=== PATIENT | male | born 1965 | race Caucasian/White ===

== ENCOUNTER 2017-07-04 02:26 | Inpatient (IN) | payer BC ==
[~2017-07-04] VITALS: Ht 193 cm; Wt 115.2 kg
[~2017-07-04 02:26] MED LIST: CEFTIN500 MG PO; HYDROCODON-ACE1 EAC7 PO; HYDROCODONE-AP1 EAC6 PO; KEFLEX500 MG PO; LOPRESSOR50 PO; NORCO 5-325 TA1 EACH PO; PEPCID40 MG PO; SENOKOT-S1 TA1 PO; ZOFRAN ODT4 MG PO
[2017-07-04 02:27] VITALS: BP 189/102
[2017-07-04 02:36] LABS: URINE BILIRUBIN NEGATIVE (Negative); URINE BLOOD 3+ (Negative); URINE CLARITY CLEAR; URINE COLOR YELLOW; URINE GLUCOSE-RANDOM* NEGATIVE (Negative); URINE KETONES TRACE (Negative); URINE LEUKOCYTES-REFLEX NEGATIVE (Negative); URINE NITRITE-REFLEX NEGATIVE (Negative); URINE PROTEIN (DIPSTICK) NEGATIVE (Negative); URINE SPECIFIC GRAVITY >= 1.030 (1.005-1.035); URINE UROBILINOGEN 0.2 E.U./dl (0.2-1.0)
[2017-07-04] MEDS ORDERED: ADDERALL 10 MG10 MG PO (02:38)
[2017-07-04 02:44] LABS: SQUAMOUS None Seen /LPF (0-3)
[2017-07-04 02:45] LABS: AMORPHOUS URATES Moderate /LPF (None Seen); BACTERIA-REFLEX 1-9 Few /HPF (None Seen); CRYSTALS None Seen /LPF (None Seen); FINE GRANULAR CASTS 0-3 Few /LPF (None Seen); HYALINE CASTS 0-3 Few /LPF (None Seen); MUCUS 0-3 Light strn/LPF (None Seen); URINE RBC 3-10 Few /HPF (0-2); URINE WBC-REFLEX None Seen /HPF (0-5)
[2017-07-04 03:26] LABS: ABSOLUTE NEUTROPHILS 4.4 thou/uL (1.4-8.2); BASOPHILS 0.5 % (0.0-2.0); HEMOGLOBIN 17.6 gm/dL (14.0-18.0); LYMPHOCYTES 23.7 % (24.0-44.0); MCH 31.3 pg (26.0-34.0); MCHC 35.2 g/dL (28.0-37.0); MCV 88.7 fL (80.0-100.0); MONOCYTES 10.7 % (1.0-8.0); PLATELET COUNT 127 thou/uL (150-400); POLYS 63.1 % (36.0-66.0); RBC 5.63 mil/uL (4.50-6.00); RDW 12.8 % (10.5-14.5); WBC 6.9 thou/uL (4.0-11.0)
[2017-07-04 03:32] LABS: CALCIUM 9.3 mg/dL (8.5-10.1); CREATININE 1.5 mg/dL (0.7-1.3); POTASSIUM 3.4 mmol/L (3.5-5.1)
[2017-07-04 04:26] VITALS: BP 157/90
[2017-07-04 04:45] VITALS: BP 175/108
[2017-07-04 08:15] VITALS: BP 140/79
[2017-07-04] MEDS ORDERED: NORCO 5-325 TA1 EACH PO (16:11)
[2017-07-04 16:32] VITALS: BP 140/79
== END 2017-07-04 17:04 | disposition home or self-care (01) | DRG 694 ==
LOC: ER 02:26 → EROBS 03:33 → 4S 04:27
PROVIDERS: Emergency Medicine
PROC: 0T778DZ Dilation of Left Ureter with Intraluminal Device, Via Natural or Artificial Opening Endoscopic (ICD-10-PCS; principal; 2017-07-04)
DX: N13.2 Hydronephrosis with renal and ureteral calculous obstruction (principal); I10 Essential (primary) hypertension; N17.9 Acute kidney failure, unspecified; F98.8 Other specified behavioral and emotional disorders with onset usually occurring in childhood and adolescence; Z88.0 Allergy status to penicillin; Z88.1 Allergy status to other antibiotic agents; Z88.8 Allergy status to other drugs, medicaments and biological substances; Z90.49 Acquired absence of other specified parts of digestive tract; Z79.899 Other long term (current) drug therapy
CPT/HCPCS: 10195; 50010; 50101; 50478; 51767; 56674; 56815; 62110; 62900; 70005

== ENCOUNTER 2018-10-10 09:25 | Inpatient (IN) | payer OTHER ==
[~2018-10-10] VITALS: Ht 193 cm; Wt 113.4 kg
[~2018-10-10 09:25] MED LIST changes: +ADDERALL 10 MG10 MG PO
[2018-10-10 09:26] VITALS: BP 167/96
[2018-10-10 09:44] LABS: ABSOLUTE NEUTROPHILS 7.1 thou/uL (1.4-8.2); BASOPHILS 0.6 % (0.0-2.0); EOSINOPHILS 1.6 % (0.0-3.0); HEMATOCRIT 50.3 % (42.0-52.0); HEMOGLOBIN 17.9 gm/dL (14.0-18.0); MCH 31.2 pg (26.0-34.0); MCHC 35.5 g/dL (28.0-37.0); MCV 87.8 fL (80.0-100.0); MONOCYTES 9.8 % (1.0-8.0); PLATELET COUNT 140 thou/uL (150-400); RBC 5.73 mil/uL (4.50-6.00); WBC 9.5 thou/uL (4.0-11.0)
[2018-10-10 09:47] LABS: CALCIUM 10.3 mg/dL (8.5-10.1); CREATININE 1.3 mg/dL (0.7-1.3)
[2018-10-10 10:08] LABS: PLATELET ESTIMATE NORMAL
[2018-10-10 12:09] VITALS: BP 176/104
[2018-10-10 12:36] VITALS: BP 170/94
--- NOTE | 2018-10-10 17:39 | NUR ---
ASSUMED CARE AT 1300, SHIFT ASSESSMENT DONE, MEDS GIVEN, VSS. ADMISSION DONE. REPORTED PAIN, 4/10, DID NOT WANT ANY PAIN MED. DENIES NAUSEA. WILL CONTINUE TO ASSESS AND ASSIST WITH ADLs NEEDED.
[2018-10-10 19:25] VITALS: BP 175/93
[2018-10-11 04:09] LABS: GLYCOHEMOGLOBIN (HGB A1C) 5.2 % (4.8-5.6)
[2018-10-11 04:42] VITALS: BP 146/84
--- NOTE | 2018-10-11 05:36 | NUR ---
PATIENT ALERT AND ORIENTED X4. UP IN ROOM AND IN THE HALLS. C/O PAIN X2 WITH GOOD RELIEF. IV PATENT. SLEPT OFF AND ON DURING NIGHT.
[2018-10-11] MEDS ORDERED: LEVAQUIN 750 M750 MG PO (09:33)
[2018-10-11] MEDS ORDERED: NASAL DECONGEST15 ML NASAL (09:34)
[2018-10-11] MEDS ORDERED: HYDROCODON-ACE1 EAC7 PO (09:34)
[2018-10-11] MEDS ORDERED: PREDNISONE 20 M20 MG PO (09:40)
[2018-10-11 12:24] VITALS: BP 146/84
== END 2018-10-11 13:14 | disposition home or self-care (01) | DRG 153 ==
LOC: ER 09:25 → EROBS 12:06 → 4E 12:06 → ENTRNSPT 10-11 09:25 → EDTRNSPTSTS 10-11 09:29 → 4E 10-11 13:14
PROVIDERS: Emergency Medicine; ADMIT Hospitalist
DX: J01.00 Acute maxillary sinusitis, unspecified (principal); J32.0 Chronic maxillary sinusitis; I10 Essential (primary) hypertension; Z88.0 Allergy status to penicillin; Z88.1 Allergy status to other antibiotic agents; Z88.8 Allergy status to other drugs, medicaments and biological substances; Z90.49 Acquired absence of other specified parts of digestive tract; Z79.899 Other long term (current) drug therapy; B96.89 Other specified bacterial agents as the cause of diseases classified elsewhere
CPT/HCPCS: 10084

== ENCOUNTER 2020-05-12 16:50 | Emergency (ER) | payer BC ==
[~2020-05-12] VITALS: Ht 190.5 cm; Wt 104.3 kg
[~2020-05-12 16:50] MED LIST changes: +LEVAQUIN 750 M750 MG PO; +NASAL DECONGEST15 ML NASAL; +PREDNISONE 20 M20 MG PO
[2020-05-12 16:51] VITALS: BP 170/104
== END 2020-05-12 17:27 | disposition home or self-care (01) ==
LOC: ER 16:50
DX: U07.1 COVID-19 (principal); R53.83 Other fatigue; I10 Essential (primary) hypertension; Z90.49 Acquired absence of other specified parts of digestive tract; Z79.899 Other long term (current) drug therapy; Z88.0 Allergy status to penicillin; Z88.1 Allergy status to other antibiotic agents; Z88.8 Allergy status to other drugs, medicaments and biological substances

== ENCOUNTER → 2020-06-08 | Outpatient (CLI) | payer OTHER | LOC: CAT 11:32 → RAD 11:32 | PROVIDERS: ATTEND Internal Medicine | DX: Z13.6 Encounter for screening for cardiovascular disorders (principal); E78.00 Pure hypercholesterolemia, unspecified; I25.10 Atherosclerotic heart disease of native coronary artery without angina pectoris ==

== ENCOUNTER 2021-02-24 14:47 | Inpatient (IN) | payer BC ==
[~2021-02-24] VITALS: Ht 193 cm; Wt 122.9 kg
[2021-02-24 14:47] VITALS: BP 174/95
--- NOTE | 2021-02-24 15:10 | EKG ---
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1965 Requested By: Cooper Rivers Order Number: [id number] MD: Elder Fuentes Measurements Intervals [place] Rate: 85 P: 48 [place]: 176 QRS: -39 QRSD: 117 T: 24 QT: 356 QTc: 424 Interpretive Statements Sinus rhythm Nonspecific IVCD with LAD Left ventricular hypertrophy Compared to ECG 12/29/2015 21:26:31 Intraventricular conduction delay now present Sinus tachycardia no longer present ST (T wave) deviation no longer present Electronically Signed On 02-24-2021 15:10:19 CDT by Elder Fuentes [email or web address] <ELECTRONICALLY SIGNED> By: Elder Fuentes MD, [facility] 02/24/21 1510 [id number] 55 Elder Fuentes MD, FACC /EPI
[2021-02-24 15:16] LABS: ABSOLUTE NEUTROPHILS 3.5 thou/uL (1.4-8.2); BASOPHILS 0.7 % (0.0-2.0); EOSINOPHILS 1.6 % (0.0-3.0); HEMATOCRIT 52.7 % (42.0-52.0); HEMOGLOBIN 18.1 gm/dL (14.0-18.0); LYMPHOCYTES 26.4 % (24.0-44.0); MCH 30.6 pg (26.0-34.0); MCHC 34.3 g/dL (28.0-37.0); MONOCYTES 10.9 % (1.0-8.0); PLATELET COUNT 140 thou/uL (150-400); POLYS 60.4 % (36.0-66.0); RBC 5.92 mil/uL (4.50-6.00); RDW 13.1 % (10.5-14.5); WBC 5.8 thou/uL (4.0-11.0)
[2021-02-24 15:25] LABS: CALCIUM 9.6 mg/dL (8.5-10.1); CREATININE 1.4 mg/dL (0.7-1.3); POTASSIUM 4.2 mmol/L (3.5-5.1)
[2021-02-24 15:35] LABS: ALBUMIN 4.3 g/dL (3.4-5.0); TOTAL BILIRUBIN 1.4 mg/dL (0.2-1.0); TOTAL PROTEIN 7.7 g/dL (6.4-8.2)
[2021-02-24 17:21] LABS: CHOLESTEROL 162 mg/dL (<200); HDL CHOLESTEROL 32 mg/dL (>40); LDL CHOLESTEROL 75 mg/dL (<100); TC:HDL 5.1 Ratio (Not establshd); TRIGLYCERIDE 279 mg/dL (<150); VLDL 56 mg/dL (<40)
[2021-02-24 17:23] LABS: SERUM ASSESSMENT Clear
[2021-02-24 18:42] VITALS: BP 144/91
[2021-02-24 19:19] VITALS: BP 152/92
[2021-02-24 20:00] VITALS: BP 150/93
[2021-02-25] VITALS: BP 141/90
[2021-02-25 03:39] LABS: CREATININE 1.5 mg/dL (0.7-1.3); POTASSIUM 4.3 mmol/L (3.5-5.1)
[2021-02-25 03:48] LABS: ALBUMIN 3.3 g/dL (3.4-5.0); PHOSPHORUS 3.8 mg/dL (2.5-4.9)
--- NOTE | 2021-02-25 03:51 | NUR ---
Pt is an ER admit. Pt presents with chest pain. He reports intermittent chest pain. Pt is alert and oriented. No sign of distress noted. Admission assessment and education completed. Scheduled meds administered to pt. No acute events noted. Pt is normal sinus rhythm. Pt is NPO after midnight for a cardiac cath. Continue to monitor. No further needs at this time.
[2021-02-25 04:45] VITALS: BP 134/77
[2021-02-25 07:55] VITALS: BP 148/91
--- NOTE | 2021-02-25 11:26 | 2DMMODE ---
[facility] [address] [place] [address] 2 D/M-MODE ECHOCARDIOGRAM Name: NATALICOLT MILTON Room #: 209-P ADM IN M.R.#: [id number] Admission: 02/24/21 Attend Phys: April Agrawal Discharge: Date of : 69 Report #: [id number] THIS REPORT FOR: cc: Temo Villalobos MD, Greg L. MD Lammoglia, Francisco J. MD ~ APPROVED REPORT Study performed: 02/25/2021 09:00:43 EXAM: Comprehensive 2D, Doppler, and color-flow Echocardiogram Patient Location: Bedside Room #: 209 Status: routine BSA: 2.50 HR: 67 bpm BP: 134/77 mmHg Rhythm: NSR Other Information Study Quality: Adequate Indications Chest Pain HTN 2D Dimensions IVSd: 11.24 (7-11mm) LVOT Diam: 23.22 (18-24mm) LVDd: 49.08 mm PWd: 10.72 (7-11mm) Ascending Ao: 37.50 (22-36mm) LVDs: 35.15 (25-40mm) Left Atrium: 31.56 (27-40mm) Aortic Root: 40.46 mm Volumes Left Atrial Volume (Systole) Single Plane 4CH: 31.94 mL Single Plane 2CH: 49.21 mL LA ESV Index: 18.00 mL/m2 Aortic Valve AoV Peak Ammon.: 1.17 m/s AO Peak Gr.: 5.49 mmHg LVOT Max P.36 mmHg LVOT Max V: 1.04 m/s PRAKASH Vmax: 3.77 cm2 [facility] [address] [place] [address] 2 D/M-MODE ECHOCARDIOGRAM Name: COLT HURST Room #: 209-P [facility]#: [id number] Admission: 02/24/21 Attend Phys: April Puente Aug Discharge: Date of : 69 Report #: [id number] Vmax: 4.55 m/s AI Wilkes: 2.81 m/s2 AI PHT: 470.00 ms Mitral Valve E/A Ratio: 0.8 MV Decel. Time: 216.26 ms MV E Max Ammon.: 0.69 m/s MV A Ammon.: 0.83 m/s MV PHT: 62.72 ms IVRT: 100.35 ms Pulmonary Valve PV Peak Ammon.: 0.96 m/s PV Peak Gr.: 3.66 mmHg Pulmonary Vein P Vein S: 0.41 m/s P Vein D: 0.39 m/s P Vein S/D Ratio: 1.05 Tricuspid Valve RAP Estimate: 5.00 mmHg Left Ventricle The left ventricle is normal size. There is normal LV segmental wall motion. Mild septal hypertrophy is present. Left ventricular systolic function is normal. LVEF is 55%. Mild diastolic dysfunction is present (impaired relaxation pattern). Right Ventricle The right ventricle is normal size. The right ventricular systolic function is normal. Atria The left atrium size is normal. The right atrium size is normal. Aortic Valve The aortic valve is normal in structure. Mild aortic regurgitation. There is no aortic valvular stenosis. Mitral Valve The mitral valve is normal in structure. Trace mitral regurgitation. No evidence of mitral valve stenosis. Tricuspid Valve [facility] [address] [place] [address] 2 D/M-MODE ECHOCARDIOGRAM Name: COLT HURST Room #: 209-P [facility] IN .R.#: [id number] Admission: 02/24/21 Attend Phys: April Coker Discharge: Date of : 69 Report #: [id number] The tricuspid valve is normal in structure. There is no tricuspid valve regurgitation noted. Unable to assess PA pressure. Pulmonic Valve The pulmonary valve is normal in structure. There is no pulmonic valvular regurgitation. Great Vessels The sinuses are mildly dilated at 4.0cm. The ascending aorta is normal in size. IVC is normal in size and collapses >50% with inspiration. Pericardium There is no pericardial effusion. <Conclusion> The left ventricle is normal size. Mild septal hypertrophy is present. There is normal LV segmental wall motion. LVEF is 55%. The left atrium size is normal. The aortic valve is normal in structure. Mild aortic regurgitation. The mitral valve is normal in structure. Trace mitral regurgitation. The tricuspid valve is normal in structure. The pulmonary valve is normal in structure. The sinuses are mildly dilated at 4.0cm. There is no pericardial effusion. <ELECTRONICALLY SIGNED> By: Doyle Skelton MD 02/25/21 1125 24 24 Doyle Skelton MD /INF
[2021-02-25 13:28] VITALS: BP 154/93
[2021-02-25 15:40] VITALS: BP 129/75
[2021-02-25] MEDS ORDERED: IMDUR 30 MG TAB30 M1 PO (16:08)
[2021-02-25] MEDS ORDERED: ADULT LOW DOSE81 MG PO (16:08)
[2021-02-25] MEDS ORDERED: NITROGLYCERIN0.4 MG SUBLING (16:08)
[2021-02-25] MEDS ORDERED: LIPITOR 20 MG T20 M1 PO (16:08)
[2021-02-25 17:24] VITALS: BP 129/75
--- NOTE | 2021-02-25 18:25 | NUR ---
PT ALERT AND ORIENTED TIMES FOUR. VSS, IVF INFUSING PER ORDER. PT NPO THIS MORNING FOR HEART CATH. PT DENIES ANY PAIN AT THIS TIME. PT AT BEDSIDE. WILL CONTINUE TO MONITOR.
[2021-02-26 02:06] LABS: GLYCOHEMOGLOBIN (HGB A1C) 5.4 % (4.8-5.6)
--- NOTE | 2021-02-26 07:16 | EKG ---
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1965 Requested By: Cooper Rivers Order Number: [id number] MD: Elder Fuentes Measurements Intervals [place] Rate: 79 P: 52 [place]: 184 QRS: -33 QRSD: 117 T: 31 QT: 360 QTc: 413 Interpretive Statements Sinus rhythm Probable left atrial enlargement Left ventricular hypertrophy Anterior Q waves, possibly due to LVH Compared to ECG 12/29/2015 21:26:31 Q waves now present Sinus tachycardia no longer present ST (T wave) deviation no longer present Electronically Signed On 02-26-2021 7:16:26 CDT by Elder Fuentes [email or web address] <ELECTRONICALLY SIGNED> By: Elder Fuentes MD, FAC 02/26/21 0716 141 141 Elder Fuentes MD, [facility] /EPI
== END 2021-02-25 18:21 | disposition home or self-care (01) | DRG 303 ==
LOC: ER 14:47 → EROBS 17:12 → 2N 19:19
PROVIDERS: Emergency Medicine; ADMIT Hospitalist; ATTEND Hospitalist
DX: I25.10 Atherosclerotic heart disease of native coronary artery without angina pectoris (principal); N17.9 Acute kidney failure, unspecified; I10 Essential (primary) hypertension; Z90.49 Acquired absence of other specified parts of digestive tract; Z88.0 Allergy status to penicillin; Z88.2 Allergy status to sulfonamides; Z88.8 Allergy status to other drugs, medicaments and biological substances; F90.9 Attention-deficit hyperactivity disorder, unspecified type; E78.5 Hyperlipidemia, unspecified; Z20.822 Contact with and (suspected) exposure to COVID-19
CPT/HCPCS: 10081